=== PATIENT | female | born 1950 | race Caucasian/White ===

== ENCOUNTER 2022-01-08 18:01 | Inpatient (IN) ==
[2022-01-08 18:52] LABS: ABS Eosinophils 0.2 10^3/ul (0-0.6); ABS Lymphocytes 1.7 10^3/ul (1.0-4.8); ABS Monocytes 0.6 10^3/ul (0-0.8); ABS Neutrophils 6.1 10^3/ul (1.5-7.7); Eosinophil % 2.4 %; Hematocrit 38 % (35-47); Hemoglobin 12.4 g/dL (12.0-16.0); Lymphocyte % 19.7 %; Mean Corpuscular HGB Conc 33 g/dL (31-36); Mean Corpuscular Hemoglobin 29 pg (27-31); Mean Corpuscular Volume 89 fL (80-97); Mean Platelet Volume 9.5 fL (7.4-10.4); Platelet Count 236 10^3/uL (150-450); Red Blood Count 4.31 10^6 /uL (3.70-4.87); Red Cell Distribution Width 14 % (10-15); White Blood Count 8.6 10^3/uL (3.5-10.8)
[2022-01-08 19:02] LABS: INR 1.01 (0.89-1.11)
[2022-01-08] MEDS ORDERED: NS 0.9% 1000 ml BAG 1,000 ML IV SCH (19:15)
[2022-01-08 19:39] LABS: Albumin/Globulin Ratio 1.7 (1-3); Calcium 9.1 mg/dL (8.6-10.3); Globulin 2.4 g/dL (2-4); Magnesium 1.9 mg/dL (1.9-2.7); Potassium 3.7 mmol/L (3.5-5.0); Total Protein 6.4 g/dL (6.4-8.9); eGFR CKD-EPI 73.2 (>60)
[2022-01-08 19:53] LABS: TSH Ultra Thyroid Stim Horm 4.2 mcIU/mL (0.34-5.60)
[2022-01-08 20:13] LABS: High Sensitivity Troponin 1 Hr 9 pg/mL (<15)
[2022-01-08] MEDS ORDERED: Metoprolol Tartrate 5 mg VIAL 5 ml VIAL (1 mg/ml) IV ONE (22:02)
[2022-01-08] MEDS ORDERED: Iodixanol (CONTRAST) 320 MG/ML 100 ML SDV IV ONE (22:26)
[2022-01-08] MEDS ORDERED: Amiodarone 150 mg IVPREMIX 150 MG/100 ML BAG IV ONE (23:14)
[2022-01-08] MEDS ORDERED: Enoxaparin 80 MG/0.8 ML SYR SUBCUT SCH (23:45)
[2022-01-09] MEDS: Amiodarone 360 MG IVPREMIX 360 MG/200 ML BAG IV SCH ×2 (00:04→05:47)
[2022-01-09] MEDS ORDERED: Ondansetron 4 mg VIAL 2 MG/ML 2 ml VIAL IV PRN (00:04)
[2022-01-09] MEDS ORDERED: Furosemide 20 mg/2 ml IV VIAL IV SLOW PU ONE (01:52)
[2022-01-09 05:18] LABS: ABS Eosinophils 0.1 10^3/ul (0-0.6); ABS Monocytes 0.5 10^3/ul (0-0.8); ABS Neutrophils 5.1 10^3/ul (1.5-7.7); Eosinophil % 1.2 %; Hematocrit 36 % (35-47); Lymphocyte % 14.7 %; Mean Corpuscular HGB Conc 33 g/dL (31-36); Mean Corpuscular Hemoglobin 29 pg (27-31); Mean Corpuscular Volume 88 fL (80-97); Mean Platelet Volume 9.4 fL (7.4-10.4); Platelet Count 207 10^3/uL (150-450); Red Blood Count 4.09 10^6 /uL (3.70-4.87); Red Cell Distribution Width 14 % (10-15); White Blood Count 6.6 10^3/uL (3.5-10.8)
[2022-01-09 05:54] LABS: Calcium 8.6 mg/dL (8.6-10.3); Potassium 3.7 mmol/L (3.5-5.0); eGFR CKD-EPI 89.3 (>60)
[2022-01-09] MEDS ORDERED: Potassium Chlor 20 meq TAB.ER PO ONE (07:50)
[2022-01-09 09:33] LABS: Magnesium 1.8 mg/dL (1.9-2.7)
[2022-01-09 11:25] VITALS: BP 106/69
== END 2022-01-09 13:59 | disposition home or self-care (01) | DRG 309 ==
LOC: ED 18:01 → EDHOLD 23:25 → SUATTDRO 23:25 → ICU 01-09 01:25
PROVIDERS: ADMIT Internal Medicine; ATTEND Internal Medicine Critical Care Medicine